=== PATIENT | male | born 1970 | race African-American/Black ===

== ENCOUNTER 2021-10-16 00:48 | Emergency (ER) | payer BC, OTHER ==
[~2021-10-16] VITALS: Ht 182.9 cm; Wt 102.1 kg
[2021-10-16] MEDS ORDERED: METO-357 PO (01:12)
[2021-10-16] MEDS ORDERED: IBUPROFEN 400 MG TABLET PO ONE (01:45)
[2021-10-16] MEDS ORDERED: HYDROCODONE/APAP 5-325MG TABLET PO ONE (01:45)
[2021-10-16] MEDS ORDERED: ACETAMINOPHEN ES 500 MG TABLET PO ONE (01:45)
[2021-10-16] MEDS ORDERED: ONDANSETRON ODT 4 MG TAB.RAPDIS SL ONE (01:45)
[2021-10-16] MEDS ORDERED: ACETAMINOPHEN ES 500 MG TABLET ONE (01:48)
[2021-10-16] MEDS ORDERED: ONDANSETRON ODT 4 MG TAB.RAPDIS ONE (01:48)
[2021-10-16] MEDS ORDERED: IBUPROFEN 400 MG TABLET ONE (01:49)
[2021-10-16] MEDS ORDERED: HYDROCODONE/APAP 5-325MG TABLET ONE (01:49)
--- NOTE | 2021-10-16 01:59 | NUR ---
Patient is able to walk to the bathroom with steady gait
[2021-10-16 02:13] LABS: HEMATOCRIT 39.9 % (36.7-47.1); MEAN CORPUSCULAR HEMOGLOBIN 31.5 uug (23.8-33.4); MEAN CORPUSCULAR VOLUME 91.4 fL (73.0-96.2); PLATELET COUNT (AUTO) 183 K/uL (152-348)
[2021-10-16 02:18] LABS: BILIRUBIN,TOTAL 0.6 mg/dL (0.2-1.0); CREATININE 1.2 mg/dL (0.6-1.3); POTASSIUM 3.2 mmol/L (3.5-5.1); TOTAL PROTEIN, SERUM 7.4 g/dL (6.4-8.2)
[2021-10-16] MEDS ORDERED: HYDR-4209 PO (02:25)
[2021-10-16] MEDS ORDERED: ONDA4TAB5 PO (02:25)
[2021-10-16] MEDS ORDERED: POTASSIUM CHLORIDE 20 MEQ POWDER PACKET PO ONE (02:30)
[2021-10-16] MEDS ORDERED: POTASSIUM CHLORIDE 20 MEQ POWDER PACKET ONE (02:33)
[2021-10-16] MEDS ORDERED: PENI500T PO (02:46)
--- NOTE | 2021-10-16 02:50 | NUR ---
Patient discharged to home in stable condition. Written and verbal after care instructions given. Patient verbalizes understanding of instructions. Stressed follow up or return to ER for worsening s/s.
[2021-10-16 03:12] VITALS: BP 145/82
== END 2021-10-16 02:52 | disposition home or self-care (01) ==
LOC: ER 01:09
DX: J02.9 Acute pharyngitis, unspecified (principal); R51.9 Headache, unspecified; R11.0 Nausea; Z20.822 Contact with and (suspected) exposure to COVID-19; Z88.8 Allergy status to other drugs, medicaments and biological substances
CPT/HCPCS: 36415; 85025; 87400; A4663; A9150; Q0162

== ENCOUNTER 2024-04-07 03:06 | Inpatient (IN) | payer OTHER ==
[2024-04-07] VITALS (8 sets, daily range): BP systolic 99–122; BP diastolic 69–88; TEMP 98; O2SAT 96–98
[~2024-04-07] VITALS: Ht 182.9 cm; Wt 106.6 kg
[~2024-04-07 03:06] MED LIST: HYDR-4209 PO; METO-357 PO; ONDA4TAB5 PO; PENI500T PO
[2024-04-07 03:45] LABS: BASOPHILS # (AUTO) 0.1 K/UL (0.0-0.2); BASOPHILS % (AUTO) 1.1 % (0.0-2.0); EOSINOPHILS # (AUTO) 0.3 K/uL (0.0-0.7); EOSINOPHILS % (AUTO) 3.9 % (0.0-7.0); HEMOGLOBIN 15.6 g/dL (12.5-16.3); LYMPHOCYTES # (AUTO) 1.9 K/uL (0.8-4.8); LYMPHOCYTES % (AUTO) 29.2 % (20.5-51.5); MEAN CORPUSCULAR HEMOGLOBIN 33.6 uug (23.8-33.4); MEAN CORPUSCULAR HGB CONC 35 g/dL (32.5-36.3); MEAN CORPUSCULAR VOLUME 96.7 fL (73.0-96.2); MONOCYTES # (AUTO) 0.4 K/uL (0.1-1.30); MONOCYTES % (AUTO) 6.6 % (0.0-11.0); NEUTROPHILS # (AUTO) 3.9 K/uL (1.8-8.9); NEUTROPHILS % (AUTO) 59.2 % (38.5-71.5); PLATELET COUNT (AUTO) 194 K/uL (152-348); RED BLOOD CELL COUNT(AUTO) 4.65 MIL/uL (4.06-5.63); RED CELL DISTRIBUTION WIDTH 14.2 % (12.1-16.2); WHITE BLOOD COUNT (AUTO) 6.6 K/uL (3.6-10.2)
[2024-04-07] MEDS: LORAZEPAM 2 MG/1 ML VIAL IV ONE (03:45)
[2024-04-07] MEDS: ENOXAPARIN SODIUM 100 MG/ML DISP.SYRIN SQ ONE (03:45)
[2024-04-07] MEDS ORDERED: ENOXAPARIN SODIUM 100 MG/ML DISP.SYRIN SQ ONE (03:54)
[2024-04-07] MEDS ORDERED: LORAZEPAM 2 MG/1 ML VIAL ONE (03:55)
[2024-04-07 04:04] LABS: DIFFERENTIAL COMMENT 1
[2024-04-07] MEDS: AMIODARONE HCL IV 150 MG in IV DEXTROSE 5% 100 ML IV ONE (04:05)
[2024-04-07] MEDS ORDERED: AMIODARONE HCL 150 MG/3 ML VIAL IV ONE ×2 (04:13→05:13)
[2024-04-07 04:58] LABS: ALANINE AMINOTRANSFERASE 30 U/L (16-63); ALBUMIN 4.1 g/dL (3.4-5.0); ALKALINE PHOSPHATASE 61 U/L (50-136); ASPARTATE AMINOTRANSFERASE 17 U/L (15-37); BILIRUBIN,DIRECT 0.2 mg/dL (0.0-0.2); BILIRUBIN,TOTAL 0.4 mg/dL (0.2-1.0); CALCIUM 8.9 mg/dL (8.5-10.1); CARBON DIOXIDE 28 mmol/L (21-32); CHLORIDE 106 mmol/L (98-107); CREATININE 1.1 mg/dL (0.6-1.3); GLUCOSE 106 mg/dL (74-106); NT-PRO BNP 68 pg/mL (0-125); POTASSIUM 3.7 mmol/L (3.5-5.1); SODIUM SERUM 145 mmol/L (136-145); TOTAL PROTEIN, SERUM 8.1 g/dL (6.4-8.2); UREA NITROGEN, BLOOD 19 mg/dL (7-18)
[2024-04-07] MEDS ORDERED: ACETAMINOPHEN 325 MG TABLET PO PRN (05:15)
[2024-04-07] MEDS ORDERED: MAGNESIUM HYDROXIDE 30 ML LIQUID UDC PO PRN (05:15)
[2024-04-07] MEDS ORDERED: REMEDY ESSENTIAL ZINC PASTE 113 GM TP PRN (05:15)
[2024-04-07 05:51] LABS: BASOPHILS # (AUTO) 0.1 K/UL (0.0-0.2); EOSINOPHILS # (AUTO) 0.3 K/uL (0.0-0.7); HEMATOCRIT 43.5 % (36.7-47.1); HEMOGLOBIN 14.9 g/dL (12.5-16.3); LYMPHOCYTES # (AUTO) 1.9 K/uL (0.8-4.8); LYMPHOCYTES % (AUTO) 28.4 % (20.5-51.5); MEAN CORPUSCULAR HEMOGLOBIN 32.8 uug (23.8-33.4); MEAN CORPUSCULAR HGB CONC 34 g/dL (32.5-36.3); MEAN CORPUSCULAR VOLUME 95.8 fL (73.0-96.2); MONOCYTES # (AUTO) 0.5 K/uL (0.1-1.30); MONOCYTES % (AUTO) 7.1 % (0.0-11.0); NEUTROPHILS # (AUTO) 3.9 K/uL (1.8-8.9); NEUTROPHILS % (AUTO) 59.5 % (38.5-71.5); PLATELET COUNT (AUTO) 181 K/uL (152-348); RED BLOOD CELL COUNT(AUTO) 4.54 MIL/uL (4.06-5.63); RED CELL DISTRIBUTION WIDTH 13.8 % (12.1-16.2); WHITE BLOOD COUNT (AUTO) 6.5 K/uL (3.6-10.2)
[2024-04-07 05:56] LABS: DIFFERENTIAL COMMENT 1
[2024-04-07 06:17] LABS: THYROID STIMULATING HORMONE 1.727 mIU/mL (0.358-3.740)
[2024-04-07 06:19] LABS: ALBUMIN 3.7 g/dL (3.4-5.0); BILIRUBIN,DIRECT 0.2 mg/dL (0.0-0.2); BILIRUBIN,TOTAL 0.4 mg/dL (0.2-1.0); CALCIUM 8.6 mg/dL (8.5-10.1); MAGNESIUM 2.3 mg/dL (1.8-2.4); POTASSIUM 3.6 mmol/L (3.5-5.1); TOTAL PROTEIN, SERUM 7.5 g/dL (6.4-8.2)
[2024-04-07] MEDS: AMIODARONE HCL IV 450 MG in IV DEXTROSE 5% 250 ML IV PRN (07:14)
[2024-04-07] MEDS: PANTOPRAZOLE SODIUM 40 MG TABLET.DR PO SCH (07:45)
[2024-04-07] MEDS ORDERED: PANTOPRAZOLE SODIUM 40 MG TABLET.DR PO ONE (08:21)
[2024-04-07] MEDS ORDERED: METOPROLOL SUCCINATE XL 50 MG TAB.SR.24H PO ONE (09:12)
[2024-04-07] MEDS: METOPROLOL SUCCINATE XL 50 MG TAB.SR.24H PO SCH (09:13)
[2024-04-07] MEDS ORDERED: FINA1TAB11 PO (11:23)
[2024-04-07] MEDS ORDERED: METO-356 PO (11:23)
[2024-04-07] MEDS ORDERED: VALA500T PO (11:23)
[2024-04-07] MEDS ORDERED: ROSU10TA2 PO (11:23)
[2024-04-07] MEDS ORDERED: OMAL150V SQ (11:23)
[2024-04-07] MEDS ORDERED: TAMS-3 PO (11:23)
[2024-04-07] MEDS ORDERED: COLC0.6T67 PO (15:18)
[2024-04-07] MEDS: COLCHICINE 0.6 MG TABLET PO SCH (16:02)
== END 2024-04-07 17:46 | disposition home or self-care (01) | DRG 309 ==
LOC: ER 03:10 → CCU 10:09
PROVIDERS: ADMIT Nurse Practitioner Family; ATTEND Internal Medicine
DX: I48.91 Unspecified atrial fibrillation (principal); I31.39 Other pericardial effusion (noninflammatory); F10.10 Alcohol abuse, uncomplicated; I11.9 Hypertensive heart disease without heart failure; E66.9 Obesity, unspecified; Z68.31 Body mass index [BMI] 31.0-31.9, adult; N40.0 Benign prostatic hyperplasia without lower urinary tract symptoms; E78.5 Hyperlipidemia, unspecified; Z79.899 Other long term (current) drug therapy; Z83.3 Family history of diabetes mellitus; Z82.49 Family history of ischemic heart disease and other diseases of the circulatory system; I44.4 Left anterior fascicular block
CPT/HCPCS: 36415; 71045; 83735; 84100; 84443; 84484; 85025; 93307; A4606; A4663; G0378; J0282; J1650; J2060; J7050